=== PATIENT | male | born 2000 | race Hispanic/Latino ===

== ENCOUNTER 2020-05-27 16:21 | Emergency (ER) | payer SELFPAY ==
[2020-05-27 16:21] VITALS: BP 154/60; PULSE 84; RESP 16; TEMP 36.9; O2SAT 99; BMI 27.2
--- NOTE | 2020-05-27 16:55 | ED.VIS.GEN ---
History of Present Illness Chief Complaint: Fever Informant: Patient Narrative: 20-year-old male presenting with fever, chills, cough for the last 5 days. He states he does not know if he is been exposed at work. He has no other exposure that is known. He states he has no medical problems. He has no surgical history. No allergies to medications. He states he does not have chest pain or shortness of breath. Past Medical History - Allergies and Home Meds Allergies/Adverse Reactions: Allergies No Known Allergies Allergy (Verified 05/27/20 16:25) Prior records reviewed: Yes Past Medical History: None Surgical History: no surgical history Lives: Spouse/ Significant Other Alcohol: None Review of Systems General: Reports: Chills, Fever. Denies: Malaise Eyes: Denies: Visual changes - bilaterally, Diplopia ENT: Denies: Rhinorrhea, Sore throat Cardiovascular: Denies: Chest pain, Palpitations Respiratory: Reports: Cough. Denies: Dyspnea, Sputum Gastrointestinal: Denies: Abdominal pain, Nausea, Vomiting, Diarrhea, Melena, Hematochezia Musculoskeletal: Denies: Back pain, Extremity Pain Skin: Denies: Rash, Wounds Neurological: Denies: Headache, Weakness, Numbness Psych: Denies: Depression, Anxiety, Suicidal thoughts, Suicidal ideations, -, - Physical Exam Vital Signs/Narrative: Vital Signs Temp Pulse Resp BP Pulse Ox 05/27/20 16:21 98.4 F 84 16 154/60 H 99 Inital Vital Signs reviewed: Yes General: Well nourished, No Acute Distress Head: Normocephalic, Atraumatic Eyes: Perrl, EOMI ENT: Moist mucous membranes, Sinus tenderness Cardiovascular: Regular rate, Regular rhythm Respiratory: No distress, CTA bilaterally Skin: Normal color, No rash. Negative for: Cyanosis, Diaphoresis Neurological: Alert, Oriented x3 Psychological: Normal affect Diagnostic/Tx/Re-eval - Medical Decision Making 20-year-old male presenting with cold-like symptoms. He has a known exposure. His vital signs are stable he is afebrile. He does not have severe symptoms. He has no medical history. Patient will be tested for Covid?19 and discharged home. He is given return precautions. Patient counseled that his girlfriend and child should also quarantine at home. Pression: 1. Viral syndrome ED Disposition - Plan for ED Patient: Disposition: Home or Assisted Living Instructions: Coronavirus Disease 2019 (COVID-19): Overview, Coronavirus Disease 2019 (COVID-19): Caring for Yourself or Others, Preventing the Spread of Infection Understanding Isolation Procedures Print Language: Sami
--- NOTE | 2020-05-27 17:26 | ED.RN ---
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 ALL QUESTIONS ANSWERED, PT VOICES UNDERSTANDING.
== END 2020-05-27 17:36 | disposition home or self-care (01) ==
LOC: ED 17:23
PROVIDERS: Emergency Provider Student in an Organized Health Care Education/Training Program
DX: U07.1 COVID-19 (principal)
CPT/HCPCS: 87635; 99282; U0003